=== PATIENT | female | born 1940 | race Caucasian/White ===

== ENCOUNTER 2018-12-03 07:17 | Outpatient (CLI) | payer OTHER ==
[~2018-12-03 07:17] MED LIST: ACTOS30 MG; AMOX TR K CLV; AVELOX ABC PAC400 MG; CALTRATE 600600 MG; COZAAR100 MG; KLONOPIN0.5 MG/TAB; LANTUS SOLOSTAR3 ML; PROTONIX20 MG; TALADINE150 MG
== END 2018-12-03 07:26 | disposition home or self-care (01) ==
LOC: TOM 07:17
DX: N18.3 Chronic kidney disease, stage 3 (moderate) (principal)
CPT/HCPCS: 74178; Q9965